=== PATIENT | female | born 1970 | race African-American/Black ===

== ENCOUNTER 2018-11-21 16:46 | Emergency (ER) | payer OTHER ==
[~2018-11-21] VITALS: Ht 154.9 cm; Wt 95.3 kg
[2018-11-21 17:10] LABS: ABSOLUTE NEUTROPHILS 4.7 thou/uL (1.4-8.2); BASOPHILS 0.7 % (0.0-2.0); HEMATOCRIT 32.7 % (37.0-47.0); HEMOGLOBIN 10.8 gm/dL (12.0-15.0); LYMPHOCYTES 38.7 % (24.0-44.0); MCH 26.3 pg (26.0-34.0); MCHC 32.9 g/dL (28.0-37.0); MCV 79.9 fL (80.0-100.0); MONOCYTES 6.4 % (1.0-8.0); PLATELET COUNT 543 thou/uL (150-400); POLYS 52.2 % (36.0-66.0); RBC 4.09 mil/uL (4.20-5.00); RDW 17.1 % (10.5-14.5)
[2018-11-21 17:20] LABS: ANION GAP 9 mmol/L (7-16); BUN 24 mg/dL (7-18); CALCIUM 9.4 mg/dL (8.5-10.1); CHLORIDE 104 mmol/L (98-107); CO2 28 mmol/L (21-32); CREATININE 1.2 mg/dL (0.6-1.0); GLUCOSE 97 mg/dL (74-106); POTASSIUM 3.8 mmol/L (3.5-5.1); SODIUM 141 mmol/L (136-145)
[2018-11-21 17:30] LABS: ALBUMIN 3.8 g/dL (3.4-5.0); SGOT 13 U/L (15-37); SGPT 18 U/L (30-65); TOTAL BILIRUBIN 0.5 mg/dL (<0.1-1.0); TROPONIN-I <0.06 ng/mL (<0.06)
[2018-11-21 17:35] LABS: AMP/METHAMP Negative (Negative); BARBITURATES Negative (Negative); BENZODIAZEPINES Negative (Negative); COCAINE Negative (Negative); METHADONE Negative (Negative); OPIATES Negative (Negative); PCP Negative (Negative)
[2018-11-21] MEDS ORDERED: CLONIDINE0.1 PO (18:19)
[2018-11-21] MEDS ORDERED: LISINOPRIL20 MG PO (18:19)
[2018-11-21 18:31] VITALS: BP 160/79
--- NOTE | 2018-11-22 10:54 | EKG ---
[place] [address] [facility] [place] [address] ELECTROCARDIOGRAM REPORT Name: COLBY MA Room #: [facility]P [facility] [id number] ������������������ Admission: 11/21/18 ������������������ Attend Phys: Discharge: 11/21/18 ������������������ Date of : 74 Report #: [id number] ����������������������������������������������������������������� [id number] THIS REPORT FOR: //name// [facility] ED Test Date: 2018-11-21 Test Time: 16:59:24 Pat Name: COLBY BACON Department: Room: Gender: F [employer]: ASHLEY : 1970 Requested By: Naif Almanza Order Number: [id number] MD: Jhonatan Sharma Measurements Intervals [place] Rate: 88 P: 36 HI: 164 QRS: 26 QRSD: 78 T: 36 QT: 364 QTc: 441 Interpretive Statements Sinus rhythm Probable left atrial enlargement Nonspecific ST segment abnormalities No previous ECG available for comparison Electronically Signed On 11-22-2018 10:54:15 CDT by Jhonatan Sharma [email or web address] ��������������������������������������������� <ELECTRONICALLY SIGNED> ���������������������������������������� By: Jhonatan Sharma MD ��������������������������������������������� 11/22/18 1054 1659 1659 Jhonatan Sharma MD /EPI
== END 2018-11-21 18:31 | disposition home or self-care (01) ==
LOC: ER 16:46
PROVIDERS: Emergency Medicine
DX: I10 Essential (primary) hypertension (principal); D64.9 Anemia, unspecified; R79.89 Other specified abnormal findings of blood chemistry; G43.909 Migraine, unspecified, not intractable, without status migrainosus; Z88.0 Allergy status to penicillin